=== PATIENT | male | born 1965 | race Caucasian/White ===

== ENCOUNTER 2024-03-20 12:08 | Outpatient (CLI) | payer OTHER | END 2024-03-20 12:09 | disposition home or self-care (01) | LOC: MADRAD 12:08 | PROVIDERS: ATTEND Chiropractor | DX: S42.92XA Fracture of left shoulder girdle, part unspecified, initial encounter for closed fracture (principal) ==

== ENCOUNTER 2024-04-30 09:35 | Outpatient (CLI) | payer OTHER | END 2024-04-30 09:36 | disposition home or self-care (01) | LOC: MADRAD 09:35 | PROVIDERS: ATTEND Chiropractor | DX: M47.816 Spondylosis without myelopathy or radiculopathy, lumbar region (principal); M47.817 Spondylosis without myelopathy or radiculopathy, lumbosacral region | CPT/HCPCS: 72100 ==